=== PATIENT | female | born 1960 | race Caucasian/White ===

== ENCOUNTER → 2016-03-25 | Outpatient (CLI) | payer BC ==
[~2016-03-25] MED LIST: LSNUNK; MXZUNK
[2016-03-25 14:19] LABS: BLOOD UREA NITROGEN 17 mg/dl (7-18); BUN/CREATININE RATIO 17.9 (10-20); CALCIUM 9.4 mg/dl (8.5-10.1); CARBON DIOXIDE 26 mmol/L (21-32); CHLORIDE 103 mmol/L (98-107); CHOLESTEROL 133 mg/dl (0-200); CREATININE 0.94 mg/dl (0.60-1.20); GLUCOSE 86 mg/dl (70-99); SODIUM 140 mmol/L (136-145)
[2016-03-25 14:22] LABS: CHOLESTEROL/HDL RATIO 2.6; HDL CHOLESTEROL 52 mg/dl; TRIGLYCERIDES 54 mg/dl (0-150); VERY LOW DENSITY LIPOPROT CALC 11 mg/dl
== END | disposition home or self-care (01) ==
LOC: C.LABSPEC 13:32
PROVIDERS: ATTEND Internal Medicine
DX: I10 Essential (primary) hypertension (principal); E78.5 Hyperlipidemia, unspecified; Z11.59 Encounter for screening for other viral diseases

== ENCOUNTER → 2016-04-28 | Outpatient (CLI) | payer BC ==
--- NOTE | 2016-04-28 15:12 | MAMMOGRAPHY REPORT ---
BILATERAL DIGITAL SCREENING MAMMOGRAM TOMOSYNTHESIS WITH CAD: 04/28/2016 CLINICAL HISTORY: Routine screening. Patient has no complaints. TECHNIQUE: Breast tomosynthesis in addition to standard 2D mammography was performed. Current study was also evaluated with a Computer Aided Detection (CAD) system. COMPARISON: Comparison is made to exams dated: 04/25/2015 mammogram, 04/24/2014 mammogram - [facility], 03/28/2008, 03/30/2009 mammogram, and 04/12/2010 mammogram - [facility]. BREAST COMPOSITION: The tissue of both breasts is heterogeneously dense, which may obscure small ma sses. FINDINGS: There is focal architectural distortion in the 11:00 middle to posterior left breast, for which additional targeted ultrasound and possible additional mammographic views is recommended. Th ere is a possible second area of architectural distortion in the superior posterior left breast, onl y seen on the MLO view, for which additional spot compression tomosynthesis views and possibly ultra sound are recommended. There are a few benign-appearing calcifications throughout the right greater than left breast. No o ther suspicious mass or suspicious cluster of microcalcifications is identified. IMPRESSION: ACR BI-RADS CATEGORY 0: INCOMPLETE EVALUATION: NEED ADDITIONAL IMAGING EVALUATION The focal architectural distortion in the 11:00 left breast and possible second area of architectura l distortion in the superior posterior left breast need additional imaging evaluation. The patient will be called to schedule an appointment. Approximately 10% of breast cancers are not detected with mammography. A negative mammographic repor t should not delay biopsy if a clinically suggestive mass is present. Bel Liu M.D. ay/:04/28/2016 09:18:22 Edger Operator: Rose Marie BOTELLO(Elizabeth)(Anshu), [facility] letter sent: Addl Imaging 0 BI-RADS Code: ACR BI-RADS Category 0: Incomplete Evaluation: Need Additional Imaging Evaluation
== END | disposition home or self-care (01) ==
LOC: C.MAMM 07:13
PROVIDERS: ATTEND Obstetrics & Gynecology
DX: Z12.31 Encounter for screening mammogram for malignant neoplasm of breast (principal); N64.89 Other specified disorders of breast

== ENCOUNTER → 2016-05-14 | Outpatient (CLI) | payer BC ==
--- NOTE | 2016-05-14 12:39 | MAMMOGRAPHY REPORT ---
UNILATERAL LEFT DIGITAL DIAGNOSTIC MAMMOGRAM TOMOSYNTHESIS AND TARGETED LEFT ULTRASOUND: 05/14/2016 CLINICAL HISTORY: 55 year-old woman called back from screening mammography for a focal area of archi tectural distortion in the upper inner quadrant of the left breast. Possible second area of distort ion more superior and posterior to the first on the left MLO view. Family history of breast cancer = grandmother and great aunt. TECHNIQUE: Spot compression tomosynthesis left CC and MLO views were obtained. COMPARISON: Comparison is made to exams dated: 04/28/2016 mammogram, 04/25/2015 mammogram, and 015 mammogram - [facility]. BREAST COMPOSITION: The tissue of the left breast is heterogeneously dense, which may obscure small masses. FINDINGS: There is effacement of the questionable second area of distortion in the superior posterio r left breast. However, there is persistence of focal architectural distortion in the 11:00 middle to posterior left breast for which further evaluation with ultrasound was performed. No associated microcalcifications. Targeted ultrasound was performed in the upper inner quadrant of the left breast. In the 11:00 axis , 2 cm from the nipple, there is an ill-defined hypoechoic lesion with associated architectural dist ortion. Accurate measurements are difficult to obtain given that the ill-defined borders but it nitza sures approximately 8.7 x 9.1 x 9.5 mm. This likely correlates with the focal architectural distort ion seen mammographically and is indeterminate. Definitive characterization with tissue sampling is recommended. IMPRESSION: ACR BI-RADS CATEGORY 4B: INTERMEDIATE SUSPICION FOR MALIGNANCY, TARGETED ULTRASOUND ACR BI-RADS CATEGORY 4B: INTERMEDIATE SUSPICION FOR MALIGNANCY 1. Ultrasound guided core needle biopsy is recommended for an ill-defined area architectural distor tion in the 11:00 breast, 2 cm from the nipple, which is thought to correlate with the mammographic finding. It is difficult to obtain accurate measurements but this lesion measures approximately 9.5 mm. These results and recommendations were discussed with the patient at the time of the exam. She tent atively scheduled the biopsy prior to leaving our department. Approximately 10% of breast cancers are not detected with mammography. A negative mammographic repor t should not delay biopsy if a clinically suggestive mass is present. Bel Liu M.D. ay/:05/14/2016 10:47:00 Social Services Coordinator: Erika Nagel, [facility] letter sent: Abnormal 06/11 BI-RADS Code: ACR BI-RADS Category 4B: Intermediate Suspicion For Malignancy Ultrasound BI-RADS: AC R BI-RADS Category 4B: Intermediate Suspicion For Malignancy
== END | disposition home or self-care (01) ==
LOC: C.MAMM 09:24
PROVIDERS: ATTEND Obstetrics & Gynecology
DX: N64.9 Disorder of breast, unspecified (principal)

== ENCOUNTER → 2016-05-16 | Outpatient (CLI) | payer BC ==
--- NOTE | 2016-05-16 08:38 | Discharge Instructions ---
Discharge Instructions Procedure Procedure Date: May 16, 2016. Reason for visit: Left Mass. Discharge Discharge Date: May 16, 2016. Discharge Diagnosis: status post breast biopsy Instructions Activity Recommendations: Additional Limitations (see below) Return to School/Work: no limitations Recommended Home Diet: No Limitations Provider Instructions: ACTIVITY RECOMMENDATIONS: * No lifting, pushing, pulling or exercising the affected side for three days. RETURN TO SCHOOL/WORK: * You may return to work/school after the procedure, but do not perform any strenuous activities for 24 to 48 hours. MEDICATIONS: * Tylenol (two 325 mg) every four to six hours if needed for mild pain (if not allergic to Tylenol). DIET: * Resume previous diet. SPECIAL CARE INSTRUCTIONS: * Keep biopsy site dry for 24 hours. May shower after 24 hours, but do not soak (bathe) incision. * May remove Tegaderm (plastic patch) tomorrow AFTER showering. * Leave the steri-strips on for one week. Allow the steri-strips to fall off by themselves. If not off after one week, you may remove them. You may place a Bandaid crosswise over the strips, if desired. * Apply ice 10 minutes on and 10 minutes off as needed. * Wear a bra at bedtime to sleep more comfortably for 2-3 days. * Your referring physician should have the results after approximately 5 to 7 business days. * Call for unusual bleeding, fever, drainage, etc or if you have any questions call during normal business hours or after hours call Dr Bay, [phone]. FOLLOW UP VISIT: Follow-up with Referring Physician as scheduled. Allergies Coded Allergies: No Known Allergies (Unverified , NONE, 06/14/08) Austen Hough Recommendations: Call your doctor if: * Temperature above 101 degrees * Pain not relieved by pain medicine ordered * There is increased drainage or redness from any incision * You have any unanswered questions or concerns. Your Doctors Instructions noted above were prepared by provider Leti Bay. Patient Signature Section: Patient Instructions Signature Page Debi Christine Patient (or Guardian) Signature/Date: I have read and understand the instructions given to me by my caregivers. Caregiver/RN/Doctor Signature/Date: The above-named patient and/or guardian has received patient instructions on this date. + Original Patient Signature Page (only) stays with chart. Please make copy for patient.
--- NOTE | 2016-05-16 13:31 | MAMMOGRAPHY REPORT ---
UNILATERAL LEFT DIGITAL DIAGNOSTIC MAMMOGRAM TOMOSYNTHESIS WITH CAD: 05/16/2016 CLINICAL HISTORY: Status post ultrasound-guided biopsy of the hypoechoic region in the left 11:00 br east. TECHNIQUE: Breast tomosynthesis in addition to standard 2D mammography was performed. Current study was also evaluated with a Computer Aided Detection (CAD) system. Postprocedural left CC and ML deisi osynthesis images including C views were obtained. COMPARISON: Comparison is made to exams dated: 05/14/2016 mammogram, 04/25/2015 mammogram, 04/24/2014 m ammogram, 04/21/2013 mammogram, and 04/16/2012 mammogram - [facility]. BREAST COMPOSITION: The tissue of the left breast is heterogeneously dense, which may obscure small masses. FINDINGS: A new biopsy marker clip is seen at the site of the biopsied hypoechoic region in the lef t 11:00 breast. A biopsy marker clip is located at the site of the mammographic architectural disto rtion, indicating good correlation between the biopsied sonographic finding and the mammographic fin ding. No significant postbiopsy hematoma is seen. IMPRESSION: POST PROCEDURE IMAGING FOR MARKER PLACEMENT New biopsy marker clip status post ultrasound guided biopsy of the hypoechoic region in the left 11: 00 breast. Pathology results are pending. Approximately 10% of breast cancers are not detected with mammography. A negative mammographic repor t should not delay biopsy if a clinically suggestive mass is present. Leti Bay M.D. ah/:05/16/2016 08:52:48 Title Processor: Jannet BOTELLO(Elizabeth)(Anshu), [facility] BI-RADS Code: Post Procedure Imaging For Marker Placement
--- NOTE | 2016-05-16 13:31 | MAMMOGRAPHY REPORT ---
THIS REPORT HAS BEEN AMENDED. ULTRASOUND GUIDED BIOPSY LEFT BREAST: 05/16/2016 CLINICAL HISTORY: Ill-defined hypoechoic region in the left 11:00 breast. PATIENT CONSENT: The procedure, risks and benefits were discussed with the patient and informed writ ten consent was obtained. A timeout was performed immediately prior to the procedure. PROCEDURE DESCRIPTION: With ultrasound guidance, aseptic technique, and lidocaine as the local anest hetic (1% lidocaine to anesthetize the skin and 1% lidocaine with epinephrine to anesthetize the carlos per tissues), the ill-defined hypoechoic region in the left 11:00 breast was sampled 5 times with a 14-gauge Achieve biopsy needle. Immediately thereafter, with ultrasound guidance, aseptic technique , and lidocaine as the local anesthetic, a metallic localizer clip was placed at the biopsy site. D irect pressure was applied to the site immediately post procedure and hemostasis was achieved. Post procedure unilateral mammograms were performed to confirm clip placement. The patient tolerated the procedure without complication. She was given wound care instructions. The specimens were sent to pathology for analysis. COMPARISON: Comparison is made to exams dated: 05/14/2016 ultrasound, 05/14/2016 mammogram, 04/28/2016 m ammogram, 04/25/2015 mammogram, 04/24/2014 mammogram, and 04/21/2013 mammogram - [facility]. IMPRESSION: ULTRASOUND GUIDED BIOPSY Ultrasound guided core needle biopsy of the ill-defined hypoechoic region in the left 11:00 breast, with clip placement. The patient will receive pathology results from her referring provider. Leti Bay M.D. ah/:05/16/2016 08:40:40 Pigskin Trimmer: Jannet BOTELLO(Elizabeth)(Anshu), [facility] AMENDMENT: 05/22/2016 Leti Bay M.D. Pathology results from ultrasound guided biopsy of the left 11:00 hypoechoic region were reviewed on 05/22/2016. The pathology shows adenosis with apocrine metaplasia. The pathology results are disco rdant with the imaging, given that the pathology does not account for the presence of architectural distortion mammographically. Therefore, recommend surgical excision for further evaluation. A phone call was made to the physician's office to ensure that the faxed results were received. AMENDMENT: 05/28/2016 Leti Bay M.D. The finding of a discordant biopsy with recommendation for surgical excision was discussed directly with the patient by Dr. Bay on 05/28/2016.
== END | disposition home or self-care (01) ==
LOC: C.MAMM 08:06
PROVIDERS: ATTEND Obstetrics & Gynecology
DX: N60.22 Fibroadenosis of left breast (principal)

== ENCOUNTER → 2017-02-03 | Outpatient (CLI) | payer BC ==
--- NOTE | 2017-02-03 08:41 | DIAGNOSTIC IMAGING REPORT ---
ABDOMINAL ULTRASOUND, RIGHT UPPER QUADRANT HISTORY: Right upper quadrant abdominal pain.. COMPARISON: Abdomen and pelvis CT 01/26/2007. FINDINGS: Pancreas: Not well visualized due to overlying bowel gas. Liver: There is a 1.4 cm cyst within the right hepatic lobe. There is also 1.2 cm hyperechoic lesion within the posterior right hepatic lobe. This remains stable and is consistent with a hemangioma. Gallbladder: No gallbladder wall thickening. No gallstones. CBD: 4 mm. Right kidney: No hydronephrosis. IMPRESSION: 1. Normal gallbladder. No gallstones. 2. Stable benign hepatic lesions. Electronically signed by: Chadwick Augustine M.D. 02/03/2017 8:40 AM Dictated Date/Time: 02/03/2017 8:38 AM
== END | disposition home or self-care (01) ==
LOC: C.ULTR 07:38
PROVIDERS: ATTEND Internal Medicine
DX: R10.11 Right upper quadrant pain (principal); K76.9 Liver disease, unspecified

== ENCOUNTER → 2017-05-04 | Outpatient (CLI) | payer OTHER ==
--- NOTE | 2017-05-05 07:55 | MAMMOGRAPHY REPORT ---
THIS REPORT HAS BEEN AMENDED. BILATERAL DIGITAL SCREENING MAMMOGRAM TOMOSYNTHESIS WITH CAD: 05/04/2017 CLINICAL HISTORY: Routine screening. Patient has no complaints. Left breast excisional biopsy performed 07/04/2016 yielded a radial scar with extensive apocrine nancy osis. Usual ductal hyperplasia. 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 TECHNIQUE: Breast tomosynthesis in addition to standard 2D mammography was performed. Current study was also evaluated with a Computer Aided Detection (CAD) system. COMPARISON: Comparison is made to exams dated: 05/14/2016 mammogram, 04/28/2016 mammogram, 04/25/2015 ma mmogram, 04/24/2014 mammogram, 04/21/2013 mammogram, and 04/16/2012 mammogram - [facility]. BREAST COMPOSITION: The tissue of both breasts is heterogeneously dense, which may obscure small mas ses. FINDINGS: There are stable benign-appearing calcifications in the right breast, and minimal vascular calcification. No suspicious mass, architectural distortion, asymmetry or cluster of microcalcifica tions is seen in the right breast. A linear scar marker overlies the 12:00 anterior left breast, and there is expected underlying unruly ectural distortion at the site of recent excisional biopsy of a radial scar. Outside pathology consu ltation described atypical adenosis extending to the margin of the specimen. No current unexpected a rchitectural distortion, calcifications, obvious mass or asymmetry identified in the left breast. IMPRESSION: ACR BI-RADS CATEGORY 0: INCOMPLETE EVALUATION: NEED ADDITIONAL IMAGING EVALUATION 1. Stable mammographic appearance of the right breast, without mammographic evidence of malignancy. 2. Expected post surgical changes in the left breast, without definite mammographic evidence of varun gnancy. I will try to obtain surgical notes to see if the surgeon took additional tissue at the time of radial scar excision, or if a repeat excision occurred after the pathology addendum. Although no current mammographic abnormality is identified, may consider additional evaluation with a breast MRI given the pathology finding of atypical adenosis extending to the surgical margin. 3. An addendum will be made once outside surgical notes are obtained. The patient will receive written notification of the results. Approximately 10% of breast cancers are not detected with mammography. A negative mammographic report should not delay biopsy if a clinically suggestive mass is present. Bel Alexa M.D. ay/:05/04/2017 17:20:34 Coding Compliance Specialist: Debi BOTELLO(Elizabeth)(Anshu), [facility] letter sent: Need Priors 0 BI-RADS Code: ACR BI-RADS Category 0: Incomplete Evaluation: Need Additional Imaging Evaluation AMENDMENT: 05/06/2017 Bel Liu M.D. The surgical office note was obtained which describes the surgical pathology finding of a radial scar with atypical apocrine adenosis. A corresponding pathology article describes the finding of atypica l apocrine adenosis as a Non-high risk lesion and Not a precursor for cancer. Therefore nothing furth er needs to be done. The decision was made to resume annual screening mammography. Given this non-h igh risk finding MRI is likely not needed and would recommend continuation of annual mammography, due in one year. Amended BI-RADS: ACR BI-RADS Category 2: Benign letter sent: Normal 03/10
== END | disposition home or self-care (01) ==
LOC: C.MAMM 07:28
PROVIDERS: ATTEND Obstetrics & Gynecology
DX: Z12.31 Encounter for screening mammogram for malignant neoplasm of breast (principal)

== ENCOUNTER → 2017-06-23 | Outpatient (CLI) | payer OTHER | END | disposition home or self-care (01) | LOC: C.PAPS 12:04 | PROVIDERS: ATTEND Obstetrics & Gynecology | DX: Z12.4 Encounter for screening for malignant neoplasm of cervix (principal) ==